=== PATIENT | male | born 1950 | race Caucasian/White ===

== ENCOUNTER → 2020-01-06 10:43 | Outpatient (CLI) | payer MEDICARE, SELFPAY ==
--- NOTE | ~2020-01-06 | MR_ITS ---
EXAMINATION: MR knee RT wo con DATE: 01/06/2020 11:29 INDICATION: Right knee pain, popping and cracking TECHNIQUE: Magnetic resonance imaging (MRI) of the right knee was performed without intravenous contr ast. Sequences included coronal PD-weighted FSE, coronal PD-weighted FS FSE, sagittal T2-weighted FS E, sagittal PD-weighted FS FSE and axial PD weighted fat saturated FSE. COMPARISON: None. FINDINGS: Medial compartment: Complex tear of the medial meniscus with a longitudinal horizontal tear plane extending to the inferi or articular surface near the free edge of the body and posterior horn of the medial meniscus and wit h a likely radial tear plane near the posterior root. Chondral ulceration and deep fissuring with mil d underlying subarticular edema along the lateral half of the anterior weightbearing medial femoral c ondyle. Partial thickness cartilage loss with smooth chondral surface along the posterior medial rim of the medial tibial plateau. Lateral compartment: Lateral meniscus is normal. Small flat subchondral osteophyte along the posterior margin of the weigh tbearing lateral femoral condyle. Small region of deep chondral ulceration with mild irregularity to the underlying cortex at the anteromedial aspect of the weightbearing medial condyle. Patellofemoral compartment: Extensive deep chondral ulceration with mild cortical irregularity and subarticular edema involving l arge portions of the patella and trochlea, medial greater than lateral. Ligaments and tendons: Anterior and posterior cruciate ligaments are normal. The medial collateral ligament and fibular christopher ateral ligament complex are normal. Moderate tendinopathy without tear of the popliteal tendon at its femoral insertion. The extensor mechanism is normal. The visualized medial and lateral hamstring ten dons as well as the iliotibial band are normal. Fluid: Moderate-sized right knee joint effusion with synovitis at the periphery of the suprapatellar pouch a nd along the posterior margin of Hoffa's fat pad. No loose osteochondral bodies identified. Osseous/other: A couple lytic lesions with thin sclerotic margins measuring up to 14 mm in maximal diameter each at the posterolateral aspect of the medial tibial plateau. These are centered in the region of the root of the posterior horn of the medial meniscus. Prominent surrounding marrow edema. No fracture or path ologic marrow replacing process. IMPRESSION: 1. Complex medial meniscal tear. 2. 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 3. Couple prominent lytic lesions at the posterolateral medial tibial plateau most likely degenerativ e cystic change related to the medial meniscal tear versus chronic erosion of indeterminate etiology. 4. Moderate-sized right knee joint effusion. 5. Moderate popliteus tendinopathy without discrete tear. Reviewed, dictated and finalized at location A. STRY ANALYST IMPRESSION: 1. Complex medial meniscal tear. 2. Tricompartmental osteoarthritis, moderate to severe with extensive high-grad e chondromalacia in the patellofemoral compartment and mild with smaller region s of high-grade chondromalacia at the medial and to lesser degree lateral suzanna rtments. 3. Couple prominent lytic lesions at the posterolateral medial tibial plateau m ost likely degenerative cystic change related to the medial meniscal tear versu s chronic erosion of indeterminate etiology. 4. Moderate-sized right knee joint effusion. 5. Moderate popliteus tendinopathy without discrete tear.
--- NOTE | ~2020-01-06 | XR_ITS ---
EXAMINATION: XR knee RT min 4V DATE: 01/06/2020 11:40 INDICATION: Right knee pain. TECHNIQUE: 4 views of right knee were obtained. COMPARISON: None. FINDINGS: Bone alignment is normal. No fracture. There is mild tricompartmental osteoarthritis. There is a small knee joint effusion. IMPRESSION: 1. Mild right knee osteoarthritis. 2. Small right knee joint effusion. Reviewed, dictated and finalized at location B. HOBBER OPERATOR
== END ==
DX: S83.231A Complex tear of medial meniscus, current injury, right knee, initial encounter (principal); M17.11 Unilateral primary osteoarthritis, right knee
CPT/HCPCS: 73564; 73721